=== PATIENT | male | born 1980 | race Caucasian/White ===

== ENCOUNTER 2022-12-26 13:50 | Emergency (ER) | payer SELFPAY ==
[~2022-12-26] VITALS: Ht 167 cm; Wt 76.8 kg
[2022-12-26 14:00] VITALS: BP 136/97
[2022-12-26] MEDS ORDERED: LIDO700A45 TP (14:06)
[2022-12-26] MEDS ORDERED: CYCL10TA25 PO (14:06)
[2022-12-26] MEDS ORDERED: KETO10TA PO (14:06)
--- NOTE | 2022-12-26 14:06 | ED Back Pain ---
General Chief Complaint: Back Problems Stated Complaint: BACK PAIN Source of Information: Patient Exam Limitations: No Limitations History of Present Illness Date Seen by Provider: Dec 26, 2022 Time Seen by Provider: 13:56 Initial Comments 42-year-old male with no pertinent past medical history coming in due to low back pain. He woke up yesterday with it, lower back radiating to the right. Does not go all the way down his leg. No bowel or bladder issues. No fever, trauma, IV drug use, or any other concerns. He is also denying any true weakness or numbness. Has not taken anything for it as of yet today, tried ibuprofen and tylenol yesterday. Allergies and Home Medications Allergies Coded Allergies: No Known Drug Allergies (Unverified , 12/26/22) Patient Home Medication List Home Medication List Reviewed: Yes Review of Systems Constitutional: No fever EENTM: no symptoms reported Respiratory: no symptoms reported Cardiovascular: no symptoms reported Gastrointestinal: no symptoms reported Genitourinary: no symptoms reported Musculoskeletal: see HPI Skin: no symptoms reported Psychiatric/Neurological: No Symptoms Reported Past Zuztuua-Fwcneh-Ukohdn Hx Patient Social History Tobacco Use?: Yes Tobacco type used: Cigarettes Substance use?: No Alcohol Use?: No Physical Exam Vital Signs Capillary Refill : Height, Weight, BMI Height: '" Weight: lbs. oz. kg; BMI Method: General Appearance: No Apparent Distress, WD/WN HEENT: PERRL/EOMI, Normal ENT Inspection, Pharynx Normal Neck: Full Range of Motion, Normal Inspection, Non Tender, Supple Cardiovascular: Regular Rate, Rhythm, No Edema, Normal Peripheral Pulses Respiratory: Chest Non Tender, Lungs Clear, Normal Breath Sounds, No Accessory Muscle Use, No Respiratory Distress Gastrointestinal: Normal Bowel Sounds, Non Tender, Soft Back: Normal Inspection, No CVA Tenderness, No Vertebral Tenderness, Muscle Spasm, Other (Right-sided paravertebral tenderness, negative straight leg test, normal neurovascular exam, antalgic gait, pain increases with any twisting or bending) Extremity: Normal Capillary Refill, Normal Inspection, Normal Range of Motion, Non Tender, No Calf Tenderness Neurologic/Psychiatric: Alert, No Motor/Sensory Deficits, Normal Mood/Affect Skin: Normal Color, Cool Progress/Results/Core Measures Progress Progress Note : Progress Note 42-year-old male presenting for nontraumatic low back pain that started yesterday. ABCs were intact and vitals were stable on presentation. He has no red flags on history and physical, specifically is neurovascular exam is normal. Pain increases with any type of twisting or bending of his back. Seems musculoskeletal in nature. We will give him IM injections here followed by prescription. Imaging not needed at this time, I recommended following up with his regular doctor if pain still here in a couple weeks and then they could talk about imaging at that time. Departure Impression Primary Impression: Spasm of muscle of lower back Disposition: HOME, SELF-CARE Condition: Stable Departure-Patient Inst. Decision time for Depature: 14:10 Referrals: NO,LOCAL PHYSICIAN (PCP/Family) Primary Care Physician Patient Instructions: Muscle Spasms (DC) Add. Discharge Instructions: This seems consistent with a muscle spasm in the lower back. Fortunately, most of these improved in a couple of weeks if you do some gentle stretching and movement at home. Try things such as heating pad and stretching. Medications were sent to [facility] to help with this as well. Do not mix the ketoroloac with ibuprofen/naproxen/aspirin. Imaging is not helpful as of yet, if the pain is still present in 2 weeks, follow-up with your regular doctor and at that point imaging may be warranted. Scripts Lidocaine (Lidocaine 5% Patch) 5 % Adh..patch 1 EACH TP Q12H PRN for Neuropathic pain MDD 2 for 14 Days, #28 PATCH 2 patches max for 12 hours, then 12 hours patch-free period. Prov: IVÁN ROMO MD 12/26/22 Ketorolac Tromethamine (Ketorolac Tromethamine) 10 Mg Tablet 10 MG PO Q8H PRN for PAIN-SEVERE (8-10) for 4 Days, #12 TAB Prov: IVÁN ROMO MD 12/26/22 Cyclobenzaprine HCl (Cyclobenzaprine HCl) 10 Mg Tablet 10 MG PO TID PRN for SPASMS for 5 Days, #15 TAB Prov: IVÁN ROMO MD 12/26/22 Work/School Note: Work Release Form Date Seen in the Emergency Department: Dec 26, 2022 Return to Work: Dec 28, 2022 Restrictions: No Restrictions IVÁN ROMO MD Dec 26, 2022 14:06
[2022-12-26] MEDS ORDERED: HYDROcodone/ACETAMINOPHEN 5 MG/325 MG TABLET PO ONE (14:15)
[2022-12-26] MEDS ORDERED: KETOROLAC INJ 15 MG/ML VIAL IM ONE (14:15)
[2022-12-26] MEDS ORDERED: ORPHENADRINE 60 MG/2 ML AMP (ED ONLY) IM ONE (14:15)
== END 2022-12-26 14:15 | disposition home or self-care (01) ==
LOC: ER FS 13:52
DX: M62.830 Muscle spasm of back (principal); F17.210 Nicotine dependence, cigarettes, uncomplicated
CPT/HCPCS: 99284